=== PATIENT | male | born 1995 | race Native Hawaiian/Other Pacific Islander ===

== ENCOUNTER 2016-10-23 09:00 | Day surgery (SDC) | payer OTHER ==
[2016-10-07 08:31] VITALS: BMI 33.4
[2016-10-23 09:28] VITALS: RESP 18
[2016-10-23] MEDS ORDERED: Midazolam 2 MG/2 ML VIAL ONE (11:34)
[2016-10-23] MEDS ORDERED: Ketamine 50 mg/ml Inj (10 ml) ONE (11:34)
[2016-10-23] MEDS ORDERED: Propofol 10 mg/ml Inj (20 ML) ONE (11:34)
[2016-10-23] MEDS ORDERED: MethylPREDNISolone Depo 40 mg/ml Inj ONE (12:00)
[2016-10-23] MEDS: Lactated Ringer's 1,000 ML IV ONE ×2 (12:15→13:47)
[2016-10-23] MEDS ORDERED: Lidocaine 5% Patch TD SCH (12:45)
[2016-10-23] MEDS: EPINEPHrine 1 mg/ml (1:1000) Inj ONE (12:55)
[2016-10-23] MEDS: Lidocaine 1% PF (5ml) Amp INJ ONE ×2 (12:55)
[2016-10-23] MEDS: MethylPREDNISolone Depo 40 mg/ml Inj IM ONE (12:55)
[2016-10-23] MEDS: Bupivacaine HCl 0.25% PF (30 ml) Inj ONE (12:55)
[2016-10-23] MEDS: Lidocaine 5% Patch TD ONE (13:45)
[2016-10-23 16:18] VITALS: BP 134/92; PULSE 82; TEMP 98.4; O2SAT 99
--- NOTE | 2016-10-25 18:08 | RAD ---
PROCEDURE: Intraoperative fluoroscopy HISTORY: LUMBAR COMPARISON: Not available TECHNIQUE: Intraoperative fluoroscopy was provided for lumbar epidural injection. Total time of fluoroscopy was 107.0 seconds. FINDINGS: Sixteen fluoroscopic spot films are submitted. Films are on file for review. IMPRESSION: Fluoroscopy provided
== END 2016-10-23 16:30 | disposition home or self-care (01) ==
LOC: H.OPSURG 09:00
PROVIDERS: ATTEND Anesthesiology
DX: M12.58 Traumatic arthropathy, other specified site (principal); M54.5 Low back pain; J45.909 Unspecified asthma, uncomplicated